=== PATIENT | male | born 1965 | race Caucasian/White ===

== ENCOUNTER 2025-02-15 14:17 | Outpatient (RCR) | payer BC, SELFPAY | END 2025-02-24 23:59 | LOC: NS 14:17 | PROVIDERS: PCP Nurse Practitioner Family; Referring Provider Nurse Practitioner Family; Visit Provider Nurse Practitioner Family | DX: Z71.3 Dietary counseling and surveillance (principal); E66.813 Obesity, class 3; R73.03 Prediabetes; Z68.41 Body mass index [BMI] 40.0-44.9, adult | CPT/HCPCS: 97802 ==

== ENCOUNTER 2025-03-24 11:02 | Outpatient (RCR) | payer BC, SELFPAY | END 2025-03-27 23:59 | LOC: NS 11:02 | PROVIDERS: PCP Nurse Practitioner Family; Referring Provider Nurse Practitioner Family; Visit Provider Nurse Practitioner Family | DX: Z71.3 Dietary counseling and surveillance (principal); R73.03 Prediabetes; E66.813 Obesity, class 3; Z68.41 Body mass index [BMI] 40.0-44.9, adult | CPT/HCPCS: 97803 ==

== ENCOUNTER 2025-05-09 15:05 | Outpatient (RCR) | payer OTHER, SELFPAY | END 2025-05-27 23:59 | LOC: NS 15:05 | PROVIDERS: PCP Nurse Practitioner Family; Referring Provider Nurse Practitioner Family; Visit Provider Nurse Practitioner Family | DX: E66.813 Obesity, class 3 (principal); R73.03 Prediabetes; Z68.41 Body mass index [BMI] 40.0-44.9, adult; Z71.3 Dietary counseling and surveillance | CPT/HCPCS: 97803 ==

== ENCOUNTER 2025-07-12 15:15 | Outpatient (RCR) | payer OTHER, SELFPAY | END 2025-07-27 23:59 | LOC: NS 15:15 | PROVIDERS: PCP Nurse Practitioner Family; Referring Provider Nurse Practitioner Family; Visit Provider Nurse Practitioner Family | DX: Z71.3 Dietary counseling and surveillance (principal); E66.813 Obesity, class 3; Z68.41 Body mass index [BMI] 40.0-44.9, adult; R73.03 Prediabetes | CPT/HCPCS: 97803 ==